=== PATIENT | male | born 1990 | race African-American/Black ===

== ENCOUNTER 2017-04-07 15:28 | Emergency (ER) | payer SELFPAY ==
[~2017-04-07] VITALS: Ht 177.8 cm; Wt 75.0 kg
[2017-04-07 15:43] VITALS: BP 118/75
== END 2017-04-08 | disposition left against medical advice (07) ==
LOC: ER 15:43
DX: Z53.21 Procedure and treatment not carried out due to patient leaving prior to being seen by health care provider (principal)